=== PATIENT | male | born 1990 | race Caucasian/White ===

== ENCOUNTER 2024-07-10 16:14 | Outpatient (CLI) | payer BC, SELFPAY ==
[2024-07-10 17:03] LABS: Basophils # 0.2 K/mm3 (0-0.2); Basophils % 1.3 % (0.1-2.0); Eosinophils # 0.3 K/mm3 (0.0-0.4); Eosinophils % 2.6 % (0.1-12.0); Hematocrit 49.2 % (42.0-52.0); Hemoglobin 16.9 g/dL (14.1-18.0); Lymphocytes # 2.9 K/mm3 (0.7-4.5); Lymphocytes % 24.1 % (10-50); Mean Corpuscular HGB Conc 34.3 g/dL (31.8-35.4); Mean Corpuscular Hemoglobin 31.3 pg (27.0-31.2); Mean Corpuscular Volume 91.3 fl (80-94); Mean Platelet Volume 7.8 fl (7.4-10.4); Monocytes # 0.9 K/mm3 (0.1-1.0); Monocytes % 7.7 % (1.7-9.3); Neutrophils # 7.8 K/mm3 (1.8-7.8); Neutrophils % 64.4 % (37.0-80.0); Platelet Count 343 K/mm3 (142-424); Red Blood Count 5.39 M/mm3 (4.60-6.20); Red Cell Distribution Width 13.6 % (11.5-17.5)
[2024-07-10 17:48] LABS: Alanine Aminotransferase 36 U/L (12-78); Albumin Level 4.6 g/dl (3.5-5.0); Albumin/Globulin Ratio 1.8 (1.1-1.8); Alkaline Phosphatase 77 U/L (38-126); Anion Gap 14.7 mEq/L (5-15); Aspartate Amino Transferase 30 U/L (17-59); Bilirubin,Total 0.8 mg/dl (0.2-1.3); Blood Urea Nitrogen 12 mg/dl (9-20); Calcium 9.6 mg/dl (8.4-10.2); Carbon Dioxide 26 mmol/L (22.0-30.0); Chloride 102 mmol/L (98-107); Estimated Glomerular Filt Rate 97 ml/min (>60); GFR (African American) 118 ML/MIN (>60); Globulin 2.5 g/dL (1.3-3.2); Glucose 94 mg/dl (74-100); Potassium 4.7 mmoL/L (3.5-5.1); Sodium 138 mmol/L (136-145); Total Protein,Serum 7.1 g/dl (6.3-8.2)
[2024-07-10 17:57] LABS: C-Reactive Protein 2.3 mg/L (0-4); Total Iron Binding Capacity 334 ug/dL (261-462)
[2024-07-10 18:24] LABS: Ferritin 62.3 ng/ml (17.9-464)
[2024-07-10 18:38] LABS: Vitamin B12 710 pg/mL (239-931)
[2024-07-10 18:53] LABS: Iron 89 ug/dL (49-181)
[2024-07-25 06:19] LABS: 1,25 Dihydroxy Vitamin D 59 pg/mL (.); 1,25-Dihydroxy, Vitamin D-2 <10 pg/mL (.); 1,25-Dihydroxy, Vitamin D-3 59 pg/mL (.)
== END 2024-07-10 23:59 | disposition home or self-care (01) ==
LOC: LAB 16:15
PROVIDERS: PCP Internal Medicine Gastroenterology; Visit Provider Internal Medicine Gastroenterology
DX: K50.90 Crohn's disease, unspecified, without complications (principal); B19.20 Unspecified viral hepatitis C without hepatic coma; K74.69 Other cirrhosis of liver
CPT/HCPCS: 36415; 80053; 82607; 82652; 82728; 83540; 83550; 85025; 86140

== ENCOUNTER 2024-09-19 06:43 | Day surgery (SDC) | payer BC, SELFPAY ==
--- NOTE | 2024-09-17 14:22 | SUR.PREOP ---
left message w/ call back # on 09/17/24 @ 1818
[2024-09-19] VITALS (7 sets, daily range): BP systolic 134–149; BP diastolic 72–92; PULSE 62–85; RESP 16–18; TEMP 36.7–36.8; O2SAT 95–98; BMI 36.9
[2024-09-19] MEDS: LACTATED RINGERS 1000ML 2,000 ML 100 ML IV (07:33)
--- NOTE | 2024-09-19 08:21 | EXP.HP ---
History of Present Illness *Admission Date: 09/19/24 *Reason for visit:: History of Crohn's disease *History of present illness: Mr. Singh is a 34-year-old gentleman who is here for surveillance colonoscopy secondary to a history of Crohn's disease. The examination is deemed medically necessary for surveillance colonoscopy with last colonoscopy in July 2019. The patient has been seen, interviewed and examined prior to the procedure by both myself and the anesthesia provider. [facility] Disclaimer: The information contained in this section may have been updated after the patient was seen, as this information can be updated by other users. Medical History Crohn's disease Family History Mother Breast cancer Social History Smoking Status: Never smoker alcohol intake: never current occupational status: employed Travel in the last 8 weeks: None Have you lived/traveled outside [place] in past 30 days?: No Contact w/someone who lives/traveled outside [place] past 30 days?: No Exposure to someone with infectious disease in past 14 days?: No Do you have a fever (greater than 100.4 F or 38 C)?: No Have you tested positive for COVID-19: No Exposed to someone with COVID-19 in past 14 days?: No Do you have a sore throat?: No Do you have a cough?: No Do you have any weakness?: No Do you have any diarrhea?: No Are you experiencing any unusual bleeding?: No Do you have any muscle aches/pain?: No Do you have any abdominal pain?: No Are you experiencing loss of taste or smell?: No Review of Systems Review of Systems Review of systems (narrative): Negative *Cardiovascular Comments: Negative *Gastrointestinal Comments: Negative *Genitourinary Comments: Negative *Musculoskeletal Comments: Negative *Neurologic Comments: Negative Meds Home Medications and Allergies Home Medications ?Medication ?Instructions ?Recorded ?Confirmed ?Type Lactobacillus rhamnosus-Bifidobac. 1 cap PO DAILY 07/09/24 07/10/24 History animalis 3 billion cell capsule ([employer]) adalimumab 40 mg/0.8 mL 40 mg SQ WEEKLY 07/09/24 07/10/24 History subcutaneous pen kit (Humira Pen) azathioprine 50 mg tablet 50 mg PO DAILY 07/09/24 07/10/24 History ytddg-7f-sze-epa-fish oil 120 1 cap PO DAILY 07/09/24 07/10/24 History mg-180 mg-60 mg-1,200 mg capsule, DR (Fish Oil) omeprazole 20 mg capsule,delayed 20 mg PO DAILY 07/09/24 07/10/24 History release polyethylene glycol 3350 17 17 g PO DAILY 07/09/24 07/10/24 History gram/dose oral powder (Miralax) psyllium husk (with sugar) 3.4 1 tbsp PO DAILY 07/09/24 07/10/24 History gram/11 gram oral powder cholecalciferol (vitamin D3) 250 250 mcg PO DAILY 07/10/24 07/10/24 History mcg (10,000 unit) capsule dicyclomine 10 mg capsule 10 mg PO TID PRN abdominal pain 07/10/24 07/10/24 Rx #90 caps vitamin E (dl, acetate) 180 mg 180 mg PO DAILY 07/10/24 07/10/24 History (400 unit) capsule adalimumab 40 mg/0.8 mL 40 mg (0.8 mL) SQ Q2W #2 ea 07/13/24 Rx subcutaneous pen kit (Humira Pen) sod picosulf 10 mg-magnes 3.5 175 ml PO DAILY Bowel Prep 2 doses 09/07/24 Rx gram-citric 12 gram/175 mL oral #350 mL solution (Clenpiq) New Prescriptions to Start Prescriptions: Allergies Allergy/AdvReac Type Severity Reaction Status Date / Time No Known Allergies Allergy Verified 07/10/24 15:40 Exam Data for Last 24 hours Vital signs and Labs for Last 24 Hours: Temp Pulse Resp BP Pulse Ox O2 Del Method 98.1 F 71 18 149/92 H 95 Room Air 09/19/24 07:23 09/19/24 07:23 09/19/24 07:23 09/19/24 07:23 09/19/24 07:23 09/19/24 07:23 *Routine HEENT Exam Head: Present normocephalic Eye: Present EOMI and PERRL ENT: Present mucous membranes moist *Routine Neck Exam Neck: Present supple *Routine Respiratory Exam Respiratory: Present CTA bilaterally *Routine Cardiovascular Exam Cardiovascular: Present RRR *Routine Abdominal Exam Abdominal: Present soft and normoactive bowel sounds; Absent tenderness *Routine Rectal Exam Rectal:: deferred *Routine Genitalia Exam Genitalia:: deferred *Routine Extremities Exam Extremities: Absent cyanosis, clubbing or edema *Routine Skin Exam Skin: Present warm; Absent rash *Routine Neurological Exam Neurological: Present alert and oriented X3 Assessment and Plan *Assessment and plan (1) Crohn's disease of both small and large intestine without complication: Status: Acute Category: Medical Code(s): K50.80 - Crohn's disease of both small and large intestine without complications Plan A/P: 1. Surveillance of Crohn's disease of small and large intestine is the preprocedural diagnosis. The patient will be anesthetized/sedated using MAC sedation. The patient has been seen and examined. Cardiac and lung assessment prior to the examination is stable. Proceed with planned surveillance colonoscopy
--- NOTE | 2024-09-19 08:22 | P.PCN_ITS ---
[facility] Procedure Note Date: 09/19/24 Time: 08:37 Procedure Note:: Colonoscopy Procedure Report: Colonoscopy with cold snare polypectomy and cold biopsies Endoscopist: Narendra Rubio II, MD Referring physician: None Date of Procedure: September 19, 2024 Equipment: Olympus 190 variable stiffness pediatric colonoscope Sedation: MAC sedation Indication: Mr. Singh is a 34-year-old gentleman with a 13-14-year history of Crohn's disease which was diagnosed in November 2010. 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 His colonoscopy in February 2013 revealed distal colitis and perianal disease. He was started on Humira and azathioprine and has been in remission. His last flareup was in 2018. He had a colonoscopy in July 2019 and had mild Crohn's colitis involving the sigmoid and rectum. He was placed on Uceris. The patient has done well. He has had some mildly elevated liver chemistries and I did place him on vitamin E. His liver chemistries have improved and he was last seen in the office in September 2023. His ultrasound has shown fatty liver and this was presumed PACHECO. The patient continues to take Humira 40 mg subcutaneous weekly and azathioprine 200 mg daily. The patient reports no rectal bleeding, diarrhea, tenesmus or mucus with his bowel movements. He was having bowel frequency with 3-5 bowel movements daily and does get some gassiness and crampy discomfort. He is taking the combination of MiraLAX plus Konsyl. He also takes omeprazole for his GERD. He is due for surveillance colonoscopy presently. At the time of his last colonoscopy sigmoid biopsy showed quiescent colitis. Recent labs from June 2024 showed normal hemoglobin/hematocrit and normal iron and B12 levels. His liver chemistries were normal. He also had a normal C-reactive protein of 2.3. Procedure: Prior to the procedure, a history and physical exam was performed, and patient's medications and allergies were reviewed. The risks, benefits and alternatives of the sedation and procedure were discussed with the patient. All questions were answered and informed consent was obtained. The patient was brought to the procedure room. Patient identification and proposed procedure were verified by the physician and the nurse. The patient was placed in a left lateral decubitus position and the scope was passed under direct vision. Throughout the procedure, the patient's blood pressure, pulse, and oxygen saturations were mo nitored continuously. The colonoscopy was accomplished without difficulty. The patient tolerated the procedure well. Findings: On digital rectal examination there was normal rectal tone. There was some perianal tags and evidence of prior perianal/perirectal disease. The colonoscope was introduced through the anal canal to the rectum and advanced to the cecum. The ileocecal valve and appendiceal orifice were identified. The scope was advanced a short distance into the ileum which appeared grossly normal. There was no evidence of any active Crohn's ileitis without any stricturing, fistulas or any evidence of prior activity. The scope was then withdrawn into the colon. There was a single flat 5 to 6 mm polyp in the cecum removed via cold snare polypectomy. The remaining cecum, ascending, transverse, descending, sigmoid and rectum were grossly normal. There was normal vascular pattern with no erythema or edema and there were no other mucosal abnormalities identified. Cold biopsies were taken from the distal sigmoid/rectosigmoid to rule out any quiescent colitis. Upon retroflexion within the rectum there were 1-2 internal hemorrhoids.there was evidence of prior fistula with closure. The preparation was excellent throughout with Burlison Preparation Score of 9. The cecal time was 12 minutes. Impression: 1. Diminutive 5 to 6 mm cecal polyp 2. Complete colonoscopic mucosal remission of Crohn's colitis/ileitis 3. Remnants of prior perianal Crohn's with no active perianal Crohn's Plan: I will follow-up the polyp histology and recommend repeat surveillance colonoscopy again in 5 years. I would continue maintenance of remission therapy. The patient is clinically doing well.
== END 2024-09-19 09:10 | disposition home or self-care (01) ==
PROVIDERS: Visit Provider Internal Medicine Gastroenterology
PROC: (CPT 45380; principal; 2024-09-19 08:00)
DX: K50.80 Crohn's disease of both small and large intestine without complications (principal); K63.5 Polyp of colon; K64.8 Other hemorrhoids
CPT/HCPCS: 45380; 45385; J7120

== ENCOUNTER 2025-08-07 15:53 | Outpatient (CLI) | payer BC, SELFPAY | END 2025-08-07 23:59 | disposition home or self-care (01) | LOC: LAB 15:53 | PROVIDERS: Visit Provider Nurse Practitioner Family | DX: R10.9 Unspecified abdominal pain (principal) | CPT/HCPCS: 36415; 86480 ==